=== PATIENT | male | born 1980 | race Caucasian/White ===

== ENCOUNTER → 2016-10-24 | Outpatient (CLI) | payer MEDICARE, OTHER ==
[2016-10-24 11:09] LABS: Basophils # (A) 0.1 k/uL (0-0.2); Basophils % (A) 1 %; CH 30.5; CHCM 35.2; Eosinophils # (A) 0.3 k/uL (0-0.7); Eosinophils % (A) 3 %; HCT 45.7 % (39.0-53.0); HGB 15.7 gm/dL (13.0-17.5); Luc # (Auto) 0.17; Luc % (Auto) 2; Lymphocytes # (A) 2.2 k/uL (1.0-4.8); Lymphocytes % (A) 29 %; MCHC 34.4 g/dL (31.0-37.0); MCV 87.2 fL (80.0-100.0); Monocytes # (A) 0.3 k/uL (0-1.0); Monocytes % (A) 4 %; Neutrophils # (A) 4.7 k/uL (1.3-7.7); Neutrophils % (A) 61 %; RBC 5.24 m/uL (4.30-5.90); RDW 13.6 % (11.5-15.5); WBC 7.8 k/uL (3.8-10.6); WBC (Perox) 7.99
[2016-10-24 11:20] LABS: ALT 44 U/L (21-72); AST 31 U/L (17-59); Alkaline Phosphatase 69 U/L (38-126); Anion Gap 10 mmol/L; Blood Urea Nitrogen 9 mg/dL (9-20); Calcium 8.9 mg/dL (8.4-10.2); Carbon Dioxide 31 mmol/L (22-30); Chloride 103 mmol/L (98-107); Cholesterol 158 mg/dL (<200); Glucose 86 mg/dL (74-99); HDL Cholesterol 23 mg/dL (40-60); Non-African American GFR(MDRD) >60 (>60 ml/min/1.73 sqM); Potassium 4.4 mmol/L (3.5-5.1); Sodium 144 mmol/L (137-145); Total Bilirubin 0.4 mg/dL (0.2-1.3); Total Protein 7.5 g/dL (6.3-8.2); Triglycerides 313 mg/dL (<150)
== END | disposition home or self-care (01) ==
LOC: LABWHC1 10:39
PROVIDERS: ATTEND Internal Medicine
DX: D86.9 Sarcoidosis, unspecified (principal); E78.5 Hyperlipidemia, unspecified
CPT/HCPCS: 36415; 80053; 80061; 82164; 84439; 84443; 85025

== ENCOUNTER → 2018-04-10 | Outpatient (CLI) | payer MEDICARE ==
[2018-04-10 14:20] LABS: Basophils % (A) 1 %; Eosinophils # (A) 0.2 k/uL (0-0.7); Eosinophils % (A) 3 %; HCT 49.3 % (39.0-53.0); HGB 17.3 gm/dL (13.0-17.5); Lymphocytes # (A) 1.7 k/uL (1.0-4.8); Lymphocytes % (A) 24 %; MCH 30.8 pg (25.0-35.0); MCHC 35.1 g/dL (31.0-37.0); MCV 87.9 fL (80.0-100.0); Mean Platelet Volume 6.8; Monocytes # (A) 0.4 k/uL (0-1.0); Monocytes % (A) 5 %; Neutrophils # (A) 4.7 k/uL (1.3-7.7); Neutrophils % (A) 66 %; Platelet Count 101 k/uL (150-450); RBC 5.61 m/uL (4.30-5.90); RDW 14.3 % (11.5-15.5); WBC 7.1 k/uL (3.8-10.6)
[2018-04-10 15:09] LABS: ALT 58 U/L (21-72); AST 44 U/L (17-59); Albumin 4.7 g/dL (3.5-5.0); Alkaline Phosphatase 68 U/L (38-126); Anion Gap 10 mmol/L; Blood Urea Nitrogen 17 mg/dL (9-20); Calcium 9.7 mg/dL (8.4-10.2); Carbon Dioxide 30 mmol/L (22-30); Chloride 100 mmol/L (98-107); Glucose 93 mg/dL (74-99); Potassium 4.6 mmol/L (3.5-5.1); Sodium 140 mmol/L (137-145); Total Bilirubin 0.6 mg/dL (0.2-1.3); Total Protein 7.9 g/dL (6.3-8.2)
[2018-04-10 15:26] LABS: T4, Free (Free Thyroxine) 0.85 ng/dL (0.78-2.19)
== END | disposition home or self-care (01) ==
LOC: LABWHC1 13:52
PROVIDERS: ATTEND Internal Medicine
DX: D86.9 Sarcoidosis, unspecified (principal); D69.6 Thrombocytopenia, unspecified
CPT/HCPCS: 36415; 80053; 82164; 84439; 84443; 85025

== ENCOUNTER → 2018-05-14 | Outpatient (CLI) | payer MEDICARE ==
[2018-05-14 14:56] LABS: Basophils % (A) 1 %; Eosinophils # (A) 0.2 k/uL (0-0.7); Eosinophils % (A) 3 %; HCT 45.8 % (39.0-53.0); HGB 16.2 gm/dL (13.0-17.5); Lymphocytes # (A) 1.3 k/uL (1.0-4.8); Lymphocytes % (A) 20 %; MCH 30.3 pg (25.0-35.0); MCHC 35.4 g/dL (31.0-37.0); MCV 85.7 fL (80.0-100.0); Mean Platelet Volume 7.1; Monocytes # (A) 0.4 k/uL (0-1.0); Monocytes % (A) 5 %; Neutrophils # (A) 4.6 k/uL (1.3-7.7); Neutrophils % (A) 69 %; Platelet Count 101 k/uL (150-450); RBC 5.35 m/uL (4.30-5.90); RDW 14.2 % (11.5-15.5); WBC 6.6 k/uL (3.8-10.6)
== END | disposition home or self-care (01) ==
LOC: LABWHC1 14:18
PROVIDERS: ATTEND Internal Medicine
DX: D69.6 Thrombocytopenia, unspecified (principal)
CPT/HCPCS: 36415; 85025

== ENCOUNTER → 2018-08-14 | Outpatient (CLI) | payer MEDICARE ==
[2018-08-14 11:19] LABS: Basophils % (A) 1 %; Eosinophils # (A) 0.2 k/uL (0-0.7); Eosinophils % (A) 4 %; HCT 47.1 % (39.0-53.0); HGB 15.9 gm/dL (13.0-17.5); Lymphocytes # (A) 1.5 k/uL (1.0-4.8); Lymphocytes % (A) 24 %; MCH 30.1 pg (25.0-35.0); MCHC 33.8 g/dL (31.0-37.0); Mean Platelet Volume 6.9; Monocytes # (A) 0.4 k/uL (0-1.0); Monocytes % (A) 6 %; Neutrophils % (A) 65 %; RBC 5.29 m/uL (4.30-5.90); RDW 14.4 % (11.5-15.5); WBC 6.2 k/uL (3.8-10.6)
[2018-08-14 12:46] LABS: Platelet Count 93 k/uL (150-450)
[2018-08-14 12:48] LABS: Anisocytosis (M) Present; Poikilocytosis (M) Present
== END | disposition home or self-care (01) ==
LOC: LABWHC1 10:32
PROVIDERS: ATTEND Internal Medicine
DX: D69.6 Thrombocytopenia, unspecified (principal)
CPT/HCPCS: 36415; 85025

== ENCOUNTER → 2018-11-26 | Outpatient (CLI) | payer MEDICARE ==
[2018-11-26 14:44] LABS: Basophils % (A) 1 %; Eosinophils # (A) 0.2 k/uL (0-0.7); Eosinophils % (A) 3 %; HCT 45.5 % (39.0-53.0); HGB 15.7 gm/dL (13.0-17.5); Lymphocytes # (A) 1.4 k/uL (1.0-4.8); Lymphocytes % (A) 23 %; MCH 30.1 pg (25.0-35.0); MCHC 34.6 g/dL (31.0-37.0); MCV 87.2 fL (80.0-100.0); Mean Platelet Volume 6.7; Monocytes # (A) 0.4 k/uL (0-1.0); Monocytes % (A) 6 %; Neutrophils # (A) 3.9 k/uL (1.3-7.7); Neutrophils % (A) 65 %; RBC 5.22 m/uL (4.30-5.90)
[2018-11-26 15:21] LABS: Platelet Count 96 k/uL (150-450)
[2018-11-26 17:43] LABS: Erythrocyte Sedimentation Rate 8 mm/hr (0-15)
[2018-11-26 20:02] LABS: Albumin 4.2 g/dL (3.80-4.90); Albumin/Globulin Ratio 1.68 (1.60-3.17); Anion Gap 6.3 mmol/L (4.00-12.00); Calcium 9.1 mg/dL (8.7-10.3); Carbon Dioxide 27.7 mmol/L (21.6-31.8); Globulin 2.5 g/dL (1.6-3.3); Potassium 4.2 mmol/L (3.5-5.5); Total Bilirubin 0.4 mg/dL (0.2-1.2); Total Protein 6.7 g/dL (6.2-8.2); Uric Acid 5.9 mg/dL (3.7-8.7)
[2018-11-26 20:04] LABS: Rheumatoid Factor 6 IU/mL (0-15)
== END | disposition home or self-care (01) ==
LOC: LABWHC1 13:50
PROVIDERS: ATTEND Internal Medicine
DX: D69.6 Thrombocytopenia, unspecified (principal); M19.90 Unspecified osteoarthritis, unspecified site; D86.9 Sarcoidosis, unspecified
CPT/HCPCS: 36415; 80053; 82164; 84550; 85025; 85652; 86038; 86431

== ENCOUNTER → 2021-12-06 | Outpatient (CLI) | payer MEDICARE ==
[2021-12-06 19:33] LABS: African American GFR (CKD) 107.9 (60.0-200.0); Albumin 4.6 g/dL (3.8-4.9); Albumin/Globulin Ratio 1.7 (1.60-3.17); Anion Gap 14.9 mmol/L (10.00-18.00); BUN/Creat Ratio 11.7 Ratio (12.00-20.00); Blood Urea Nitrogen 11.7 mg/dL (9.0-27.0); Carbon Dioxide 22.1 mmol/L (20.0-27.5); Globulin 2.7 g/dL (1.6-3.3); Non-African American GFR(CKD) 93.1 (60.0-200.0); Potassium 4.3 mmol/L (3.5-5.5); Total Bilirubin 0.4 mg/dL (0.30-1.20); Total Protein 7.3 g/dL (6.2-8.2)
== END | disposition home or self-care (01) ==
LOC: LABWHC1 11:21
PROVIDERS: ATTEND Internal Medicine
DX: D86.9 Sarcoidosis, unspecified (principal)
CPT/HCPCS: 36415; 80053; 82164; 85652; 86038

== ENCOUNTER → 2021-12-26 | Outpatient (CLI) | payer MEDICARE ==
--- NOTE | 2021-12-26 08:46 | CT ---
EXAMINATION TYPE: CT chest w con DATE OF EXAM: 12/26/2021 COMPARISON: CT dated 09/08/2013 HISTORY: sarcoidosis CT DLP: 572.8 mGycm Automated exposure control for dose reduction was used. TECHNIQUE: CT scan of the chest is performed with IV Contrast, patient injected with 100 mL of Isovue 300. FINDINGS: LUNGS: Areas of thin linear atelectasis/linear scarring are seen involving the upper, mid and lower l evgeny zones, and most evident in the right midlung zone and left lower lung zone, not significantly charley nged since 2013 CT scan. Unremarkable lungs otherwise. Patent central airways. No pleural effusion. MEDIASTINUM: No gross cardiomegaly. No sizable pericardial effusion. The pulmonary trunk measures 2.9 cm. No significant arterial calcification. Bovine aortic arch. No pathologically enlarged lymph node s in the chest. OTHER: Enlarged liver with suspected fatty infiltration and nodular outline, please correlate for he patic cirrhosis. Bulky spleen, please correlate clinically. Prominent vasculature is seen posterior t o the spleen. Portal hypertension cannot be excluded. Degenerative changes of the thoracic spine. IMPRESSION: Bilateral pulmonary thin areas of linear atelectasis/scarring as described above, nonspecific and not significantly changed compared to the previous CT scan. Unremarkable lungs otherwise. No pathologica lly enlarged lymph nodes in the chest. Enlarged liver with suspected fatty infiltration and nodular outline with bulky spleen, please correl ate for hepatic cirrhosis and possible portal hypertension. Other incidental findings as described ab ove.
== END | disposition home or self-care (01) ==
LOC: RADCTMAIN 07:17
PROVIDERS: ATTEND Internal Medicine
DX: J98.11 Atelectasis (principal); R16.0 Hepatomegaly, not elsewhere classified
CPT/HCPCS: 71260; Q9967

== ENCOUNTER → 2023-03-28 | Outpatient (CLI) | payer MEDICARE ==
--- NOTE | 2023-03-28 13:12 | US ---
EXAMINATION TYPE: US liver DATE OF EXAM: 03/28/2023 COMPARISON: NONE CLINICAL INDICATION: Male, 42 years old with history of K76.0 FATTY LIVER; known fatty liver, large h abitus TECHNIQUE: Multiple sonographic images of the right upper quadrant are obtained. FINDINGS: EXAM MEASUREMENTS: Liver Length: 19.2 cm Gallbladder Wall: 0.2 cm CBD: 0.8 cm Right Kidney: 12.6 x 6.3 x 5.9 cm REMOTE PILOT OPERATOR NOTES:difficult to penetrate due to habitus and fatty liver Pancreas: not seen due to bowel gas Liver: extremely difficult to penetrate and heterogeneous, slightly enlarged Gallbladder: wnl Evidence for sonographic Patel's sign: no CBD: Mildly dilated. Right Kidney: wnl IMPRESSION: 1. Severe hepatic steatosis. Correlate with LFTs and lipid profile, patient risk factors. Appropriate clinical management is advised. 2. No gallstones. 3. However, the bile duct is mildly dilated at 8 mm. Unclear if this is chronic for the patient. Ashley elate with alkaline phosphatase and bilirubin levels to exclude biliary obstruction.
== END | disposition home or self-care (01) ==
LOC: RADUSWWP 07:57
PROVIDERS: ATTEND Internal Medicine
DX: K76.0 Fatty (change of) liver, not elsewhere classified (principal); K83.8 Other specified diseases of biliary tract
CPT/HCPCS: 76705

== ENCOUNTER → 2023-06-19 | Outpatient (CLI) | payer MEDICARE ==
[2023-06-19 15:18] LABS: Basophils # (A) 0.04 X 10*3/uL (0.00-0.10); Basophils % (A) 0.9 %; Eosinophils # (A) 0.11 X 10*3/uL (0.04-0.35); Eosinophils % (A) 2.4 %; HCT 44.3 % (39.6-50.0); HGB 15.7 d/dL (13.0-17.0); Lymphocytes # (A) 0.78 X 10*3/uL (0.90-5.00); Lymphocytes % (A) 17.1 %; MCH 29.9 pg (27.0-32.0); MCHC 35.4 d/dL (32.0-37.0); MCV 84.4 FL (80.0-97.0); Monocytes % (A) 4.4 %; NRBC Per 100 WBC 0 X 10*3/uL (0.00-0.01); Neutrophils % (A) 74.8 %; Platelet Count 111 X 10*3/uL (140-440); RBC 5.25 X 10*6/uL (4.40-5.60); RDW 14.2 % (11.5-14.5); WBC 4.55 X 10*3/uL (4.50-10.00)
[2023-06-19 15:29] LABS: ALT 24 U/L (10-49); AST 30 U/L (14-35); Albumin 4.6 d/dL (3.8-4.9); Albumin/Globulin Ratio 1.77 Ratio (1.60-3.17); Alkaline Phosphatase 79 U/L (41-126); Blood Urea Nitrogen 13.8 mg/dL (9.0-27.0); Calcium 9.4 mg/dL (8.7-10.3); Carbon Dioxide 26.8 mmol/L (21.6-31.8); Chloride 101 mmol/L (96-109); Globulin 2.6 d/dL (1.6-3.3); Glucose 145 mg/dL (70-110); Potassium 4.2 mmol/L (3.5-5.5); Sodium 138 mmol/L (135-145); Total Bilirubin 0.6 mg/dL (0.3-1.2); Total Protein 7.2 d/dL (6.2-8.2)
== END | disposition home or self-care (01) ==
LOC: LABWHC1 10:56
PROVIDERS: ATTEND Nurse Practitioner Family
DX: K76.0 Fatty (change of) liver, not elsewhere classified (principal)
CPT/HCPCS: 36415; 80053; 85025

== ENCOUNTER → 2024-07-29 | Outpatient (CLI) | payer MEDICARE ==
[2024-07-29 15:03] LABS: Basophils % (A) 0.5 %; Eosinophils % (A) 2.8 %; HCT 43.5 % (39.6-50.0); Lymphocytes % (A) 16.7 %; MCHC 34.5 g/dL (32.0-37.0); Monocytes % (A) 4.1 %; NRBC Per 100 WBC 0 X 10*3/uL (0.00-0.01); Neutrophils # (A) 2.95 X 10*3/uL (1.80-7.70); Neutrophils % (A) 75.6 %; Platelet Count 117 X 10*3/uL (140-440); RDW 14.1 % (11.5-14.5)
[2024-07-29 15:04] LABS: Basophils # (A) 0.02 X 10*3/uL (0.00-0.10); Eosinophils # (A) 0.11 X 10*3/uL (0.04-0.35); Lymphocytes # (A) 0.65 X 10*3/uL (0.90-5.00); Monocytes # (A) 0.16 X 10*3/uL (0.20-1.00)
[2024-07-29 15:28] LABS: ALT 26 U/L (10-49); AST 24 U/L (14-35); Albumin 4.1 g/dL (3.8-4.9); Albumin/Globulin Ratio 1.64 Ratio (1.60-3.17); Alkaline Phosphatase 94 U/L (41-126); BUN/Creat Ratio 13.75 Ratio (12.00-20.00); Calcium 8.4 mg/dL (8.7-10.3); Chloride 99 mmol/L (96-109); Globulin 2.5 g/dL (1.6-3.3); Glucose 287 mg/dL (70-110); Sodium 137 mmol/L (135-145); Total Bilirubin 0.5 mg/dL (0.3-1.2); Total Protein 6.6 g/dL (6.2-8.2)
== END | disposition home or self-care (01) ==
LOC: LABWHC1 09:47
PROVIDERS: ATTEND Internal Medicine Gastroenterology
DX: K76.0 Fatty (change of) liver, not elsewhere classified (principal)
CPT/HCPCS: 36415; 80053; 85025

== ENCOUNTER → 2025-02-02 | Outpatient (CLI) | payer MEDICARE ==
[2025-02-02 15:13] LABS: Basophils # (A) 0.04 X 10*3/uL (0.00-0.10); Eosinophils # (A) 0.14 X 10*3/uL (0.04-0.35); Eosinophils % (A) 3.6 %; HCT 43.3 % (39.6-50.0); HGB 15.1 g/dL (13.0-17.0); Lymphocytes # (A) 0.84 X 10*3/uL (0.90-5.00); Lymphocytes % (A) 21.6 %; MCH 29.4 pg (27.0-32.0); MCHC 34.9 g/dL (32.0-37.0); MCV 84.2 FL (80.0-97.0); Mean Platelet Volume 9.8 FL (9.5-12.2); Monocytes # (A) 0.24 X 10*3/uL (0.20-1.00); Monocytes % (A) 6.2 %; NRBC Per 100 WBC 0 X 10*3/uL (0.00-0.01); Neutrophils # (A) 2.62 X 10*3/uL (1.80-7.70); Neutrophils % (A) 67.3 %; Platelet Count 119 X 10*3/uL (140-440); RBC 5.14 X 10*6/uL (4.40-5.60); RDW 14.2 % (11.5-14.5); WBC 3.89 X 10*3/uL (4.50-10.00)
[2025-02-02 16:36] LABS: ALT 21 U/L (10-49); AST 30 U/L (14-35); Albumin 4.4 g/dL (3.8-4.9); Albumin/Globulin Ratio 1.52 Ratio (1.60-3.17); Alkaline Phosphatase 84 U/L (41-126); Blood Urea Nitrogen 12.1 mg/dL (9.0-27.0); Carbon Dioxide 23.3 mmol/L (21.6-31.8); Chloride 101 mmol/L (96-109); Globulin 2.9 g/dL (1.6-3.3); Glucose 114 mg/dL (70-110); Potassium 4.2 mmol/L (3.5-5.5); Sodium 138 mmol/L (135-145); Total Bilirubin 0.8 mg/dL (0.3-1.2); Total Protein 7.3 g/dL (6.2-8.2)
== END | disposition home or self-care (01) ==
LOC: LABWHC1 10:07
PROVIDERS: ATTEND Nurse Practitioner Family
DX: K76.0 Fatty (change of) liver, not elsewhere classified (principal)
CPT/HCPCS: 36415; 80053; 85025